=== PATIENT | female | born 1990 | race Caucasian/White ===

== ENCOUNTER 2020-08-31 15:57 | Outpatient (CLI) | payer OTHER, SELFPAY ==
[2020-08-31 16:55] LABS: SARS-CoV-2 Ag Negative (Negative)
[2020-09-02 18:11] LABS: SARS-CoV-2 RNA PCR Negative
== END 2020-08-31 15:58 | disposition home or self-care (01) ==
LOC: CHSLAB 16:03
PROVIDERS: PCP Internal Medicine; Visit Provider Internal Medicine
DX: Z20.822 Contact with and (suspected) exposure to COVID-19 (principal)
CPT/HCPCS: 87426; C9803; U0003; U0005

== ENCOUNTER 2020-10-06 09:12 | Outpatient (CLI) | payer OTHER, SELFPAY ==
[2020-10-06 10:26] LABS: Thyroid Stimulating Hormone Reflex 0.69 u/IU/mL (0.36-3.74)
[2020-10-09 08:20] LABS: Prolactin 4.9 ng/mL (***)
== END 2020-10-06 09:13 | disposition home or self-care (01) ==
LOC: CHSLAB 09:16
PROVIDERS: PCP Internal Medicine; Visit Provider Obstetrics & Gynecology
DX: N92.6 Irregular menstruation, unspecified (principal)
CPT/HCPCS: 36415; 84146; 84443

== ENCOUNTER 2021-07-26 11:01 | Emergency (ER) | payer OTHER, SELFPAY ==
[2021-07-26 11:27] VITALS: BP 116/72; PULSE 81; RESP 18; TEMP 37; O2SAT 100
--- NOTE | 2021-07-26 12:15 | ED.GENADULT ---
HPI - General Adult General Chief complaint: Dental/Oral Stated complaint: toothache Time Seen by Provider: 07/26/21 12:15 Source: patient Mode of arrival: ambulatory Limitations: no limitations History of Present Illness HPI narrative: Patient is a 30-year-old female presents to the urgent care via POV for evaluation of dental pain located on left bottom wisdom tooth that has been present since 07/22/2021. She states her pain is a continuous throbbing pain. She states her pain has steadily worsened prompting today's visit. Current pain level is 9 out of 10 on a pain scale. Additionally, she reports left-sided facial swelling and left ear pain. Ibuprofen and Tylenol provides some relief. Ibuprofen is more effective as reported by the patient. Pain worsens with lying down. She has a dental appointment on 08/03/2021. She also admits that she is a current tobacco smoker. She has been smoking cigarettes for 10 years. She currently smokes half a pack per day. Related Data Allergies Allergy/AdvReac Type Severity Reaction Status Date / Time No Known Allergies Allergy Unknown Verified 07/26/21 12:06 Review of Systems Review of Systems: Denies fever, chills, sweats, change in appetite, lymphadenopathy, sore throat, drooling, difficulty swallowing, trismus, abdominal pain, nausea, vomiting, diarrhea, shortness of breath, chest pain, and heart palpitations. PMFSH Comments I have reviewed and agree with the patient's past medical, surgical, social, and family hx as documented by the RN. There is no relevant family history pertinent to the presenting complaint. Exam Narrative: GENERAL: Well-appearing, well-nourished, and in no acute distress. HEAD: Normocephalic, atraumatic. No sinus tenderness or facial swelling. NECK: Supple. No lymphadenopathy or nuchal rigidity. CHEST: Lung sounds are clear to auscultation in bilateral lung saunders. No respiratory distress. No evidence of cough upon examination. HEART: Regular rate and rhythm. No murmurs, gallops, or rubs heard. Normal peripheral pulses. Eyes: PERRLA and EOMI. Bilateral conjunctiva with erythema. Normal sclera, eyelids, and eyelashes. Periorbital areas without swelling, erythema, and warmth. No drainage appreciated. ENT: Ears: TMs pearly jones. No bulging, erythema, or fluid appreciated. External auditory canals are Nose: Nares clear, no rhinorrhea or epistaxis. No swelling or erythema. Throat/Mouth: No evidence of swelling, erythema, exudate, peritonsillar mass, lesions, ulcers or drooling. Uvula is midline and without erythema and swelling. Mucous membranes moist. Voice and breath odor normal. No evidence of dental abscess noted to left third molar. Multiple dental caries are noted throughout dentition. EXTREMITIES: Normal range of motion. No edema. SKIN: Warm, dry, no rash. No skin color changes. Excellent turgor. NEURO: No focal deficits. Alert and oriented x3. Course Vital Signs Vital signs: Vital Signs Temperature 98.6 F 07/26/21 11:27 Pulse Rate 81 07/26/21 11:27 Respiratory Rate 18 07/26/21 11:27 Blood Pressure 116/72 07/26/21 11:27 Pulse Oximetry 100 07/26/21 11:27 Temperature 98.6 F 07/26/21 11:27 Pulse Rate 81 07/26/21 11:27 Respiratory Rate 18 07/26/21 11:27 Blood Pressure 116/72 07/26/21 11:27 Pulse Oximetry 100 07/26/21 11:27 Reviewed Medical Decision Making Differential Diagnosis Differential Diagnosis: Allergic rhinitis, ABRS, acute viral sinusitis, strep pharyngitis, nasopharyngitis, bronchitis, pneumonia, AOM, otitis externa, viral URI, influenza, covid-19 Medical Records Medical records reviewed: Yes I reviewed the external patient's medical records. Vital Signs Vital Signs: Vital Signs Temperature 98.6 F 07/26/21 11:27 Pulse Rate 81 07/26/21 11:27 Respiratory Rate 18 07/26/21 11:27 Blood Pressure 116/72 07/26/21 11:27 Pulse Oximetry 100 07/26/21 11:27 Temperature 98.6 F 07/26/21 11:27
== END 2021-07-26 12:37 | disposition home or self-care (01) ==
PROVIDERS: Emergency Provider Nurse Practitioner Family; PCP Internal Medicine
DX: K04.7 Periapical abscess without sinus (principal)
CPT/HCPCS: 99213; G0463

== ENCOUNTER 2024-05-19 10:38 | Outpatient (CLI) | payer BC, SELFPAY ==
--- NOTE | ~2024-05-19 | XR_ITS ---
XR chest 2V 05/19/2024 12:09 Indication: Follow-up pneumonia Procedure: 2 view chest Comparison: Comparison to multiple prior studies sequentially, with oldest reviewed study dated 11/23. Findings: There is left upper lobe pneumonia. Prominent right nipple shadow. Heart size normal. No pl eural effusion, edema or pneumothorax. Impression: 1: Left upper lobe pneumonia. Reviewed, dictated and finalized at location B. Impression: 1: Left upper lobe pneumonia.
[2024-05-19 11:08] LABS: Basophils Absolute Auto 0.04 K/mm3 (0.00-0.10); Basophils Percent Auto 0.3 % (0.0-1.0); Eosinophils Absolute Auto 0.09 K/mm3 (0.02-0.50); Eosinophils Percent Auto 0.7 % (1.0-6.0); Hematocrit 43.2 % (35.0-49.0); Hemoglobin 14.4 g/dL (12.0-15.0); Immature Granulocyte Absolute 0.07 K/mm3 (0.00-0.00); Immature Granulocyte Percent A 0.5 % (0.0-0.0); Lymphocytes Absolute Auto 1.95 K/mm3 (1.10-4.50); Lymphocytes Percent Auto 14.6 % (18.0-42.0); Mean Corpuscular HGB Conc 33.3 g/dL (32-36); Mean Corpuscular Hemoglobin 30.8 pg (27.0-31.0); Mean Corpuscular Volume 92.3 fL (78.0-102.0); Mean Platelet Volume 9.1 fl (9.2-11.8); Monocytes Absolute Auto 1.38 K/mm3 (0.10-0.90); Monocytes Percent Auto 10.3 % (2.0-11.0); Neutrophils Absolute Auto 9.82 K/mm3 (1.70-7.20); Neutrophils Percent Auto 73.6 % (50.0-70.0); Platelet Count Result 267 K/mm3 (150-420); Red Blood Count 4.68 M/mm3 (4.20-5.40); Red Cell Distribution Width 12.8 % (11.6-14.4); White Blood Count 13.4 K/mm3 (4.8-10.8)
[2024-05-19 12:53] LABS: Alanine Aminotransferase 31 U/L (14-59); Albumin Level 3.8 g/dL (3.4-5.0); Alkaline Phosphatase 77 U/L (46-116); Anion Gap 13 mmol/L (4-12); Aspartate Amino Transferase 18 U/L (15-37); Bilirubin,Total 0.4 mg/dL (0.00-1.00); Blood Urea Nitrogen 6 mg/dL (7-18); CRP 7.5 mg/dL (0.0-0.9); Calcium 9.3 mg/dL (8.5-10.1); Carbon Dioxide 25 mmol/L (21-32); Chloride 101 mmol/L (98-108); Estimated Glomerular Filt Rate > 60; Glucose 93 mg/dL (70-99); Osmolality Calculated 285 mOsm/kg (285-295); Sodium 139 mmol/L (136-145); Total Protein 7.5 g/dL (6.4-8.2)
== END 2024-05-19 10:39 | disposition home or self-care (01) ==
PROVIDERS: PCP Internal Medicine; Visit Provider Internal Medicine
DX: J18.9 Pneumonia, unspecified organism (principal)
CPT/HCPCS: 36415; 71046; 80053; 85025; 86140

== ENCOUNTER 2024-06-16 16:30 | Outpatient (CLI) | payer BC, SELFPAY ==
--- NOTE | ~2024-06-16 | XR_ITS ---
CHEST RADIOGRAPH, PA AND LATERAL CLINICAL HISTORY: Pneumonia . COMPARISON: 06/02/2024 TECHNIQUE: PA and lateral views of the chest. FINDINGS The cardiomediastinal silhouette is unremarkable. The lungs are clear. Visualized osseous structures and soft tissues are unremarkable. IMPRESSION: No focal infiltrate or effusion. Reviewed, dictated and finalized at location A. ARE DIRECTOR
[2024-06-16 16:44] LABS: Basophils Absolute Auto 0.05 K/mm3 (0.00-0.10); Basophils Percent Auto 0.4 % (0.0-1.0); Eosinophils Absolute Auto 0.29 K/mm3 (0.02-0.50); Eosinophils Percent Auto 2.5 % (1.0-6.0); Hematocrit 39.2 % (35.0-49.0); Hemoglobin 12.9 g/dL (12.0-15.0); Immature Granulocyte Absolute 0.06 K/mm3 (0.00-0.00); Immature Granulocyte Percent A 0.5 % (0.0-0.0); Immature Reticulocyte Fraction 6.1 % (2.0-16.52); Lymphocytes Absolute Auto 3.63 K/mm3 (1.10-4.50); Lymphocytes Percent Auto 31.1 % (18.0-42.0); Mean Corpuscular HGB Conc 32.9 g/dL (32-36); Mean Corpuscular Hemoglobin 30.7 pg (27.0-31.0); Mean Corpuscular Volume 93.3 fL (78.0-102.0); Mean Platelet Volume 9.3 fl (9.2-11.8); Monocytes Absolute Auto 0.93 K/mm3 (0.10-0.90); Neutrophils Absolute Auto 6.73 K/mm3 (1.70-7.20); Neutrophils Percent Auto 57.5 % (50.0-70.0); Platelet Count Result 278 K/mm3 (150-420); Red Cell Distribution Width 13.9 % (11.6-14.4); Reticulocyte Hemoglobin Conten 33.8 pg (28.0-35.0); Reticulocyte Percent 0.85 % (0.50-1.50); Reticulocytes Absolute 0.04 M/mm3 (0.02-0.10); White Blood Count 11.7 K/mm3 (4.8-10.8)
== END 2024-06-16 16:31 | disposition home or self-care (01) ==
PROVIDERS: PCP Internal Medicine; Visit Provider Internal Medicine
DX: J18.9 Pneumonia, unspecified organism (principal)
CPT/HCPCS: 36415; 71046; 85025; 85046